=== PATIENT | male | born 1985 | race Caucasian/White ===

== ENCOUNTER → 2019-04-10 | Outpatient (CLI) | payer BC ==
--- NOTE | 2019-04-10 14:50 | Diagnostic Imaging Report ---
EXAM: CT right foot WITHOUT contrast INDICATION: Dislocation. Injury. Lisfranc injury. Foot pain COMPARISON: None TECHNIQUE: Right foot was scanned utilizing a multidetector helical scanner without administration of IV contrast. Absence of intravenous contrast decreases sensitivity for detection of lymphadenopathy and vascular pathology. Coronal and sagittal reformations were obtained. Routine protocol was performed. IV CONTRAST: None COMPLICATIONS: None RADIATION DOSE: Total DLP: 114 mGy*cm Estimated effective dose: (DLP x 0.014 x size factor) mSv CTDIvol has been reviewed. It is below the limits set by the Radiation Protocol Committee (RPC). Dose modulation, iterative reconstruction, and/or weight based adjustment of the mA/kV was utilized to reduce the radiation dose to as low as reasonably achievable. FINDINGS: Comminuted intra-articular fracture involving the proximal second metatarsal and adjacent cuneiform bone. The proximal second metatarsal is subluxed laterally by approximately 3 mm. Several bone fragments are seen at the Lisfranc joint. Additionally, there is a comminuted intra-articular fracture involving the lateral cuneiform bone. The remainder the visualized osseous structures appear to be intact. Mild scattered degenerative changes are seen. No osseous erosion. Soft tissue swelling centered at the Lisfranc joint. No radiopaque foreign body. No talar dome osteochondral lesion is seen. The subtalar joints are intact. Impression: Lisfranc joint fracture as described above. Signed by: Dr. Casa Ansari M.D. on 04/10/2019 2:48 PM
== END ==
LOC: CT 11:01
PROVIDERS: ATTEND Podiatrist Foot & Ankle Surgery
DX: S93.324A Dislocation of tarsometatarsal joint of right foot, initial encounter (principal)

== ENCOUNTER → 2019-04-18 | Day surgery (SDC) | payer BC ==
[~2019-04-18] MED LIST: BUPIVACAINE HCL 0.5% INJ 30 ML VIAL INJ ONE; BUSPIRONE HCL15 MG PO; CEFAZOLIN SOD 1 GM/NS 50ML 50 ML IV ONE; DEXAMETHASONE SOD PHOS INJ 4 MG/ML VIAL ONE; FENTANYL CITRATE/PF 100MCG/2 ML INJ ONE; KETOROLAC TROMETHAMINE 30 MG/ML VIAL ONE; LIDOCAINE HCL 2% LOCAL INJ 5 ML SDV VIAL INJ ONE; MIDAZOLAM HCL 2 MG/2 ML VIAL ONE; ONDANSETRON HCL INJ 2MG/ML 2ML 2 MG/ML VIAL ONE; PAXIL30 MG PO; PROPOFOL IV EMULSION 10 MG/ML 20 ML VIAL ONE; SEROQUEL25 MG PO; SEVOFLURANE INHAL SOLN 250 ML PEN BTL ONE; STRATTERA80 MG PO
[2019-04-18 09:40] VITALS: BP 140/94
--- NOTE | 2019-04-18 13:34 | Operative Report ---
DATE OF PROCEDURE: 04/18/2019 SURGEON: Bakari Chavez DPM PREOPERATIVE DIAGNOSIS: Right Lisfranc injury. POSTOPERATIVE DIAGNOSIS: Right Lisfranc injury. PLANNED PROCEDURES: Right open reduction and internal fixation of tarsometatarsal dislocation. SEWING MACHINE ADJUSTER: Tito Quintanilla DPM ([place]). ANESTHESIA: General with a postoperative block consisting of 15 mL of 0.5% Marcaine plain. HEMOSTASIS: Pneumatic thigh tourniquet set at 350 mmHg for a total time of 85 minutes. MATERIALS: Golden screws 4.0 cannulated by 26 mm, 40 mm, and 32 mm with a washer, one 4-hole straight plate, one 5-hole straight plate, four 2.4 mm combination locking and nonlocking screws measured between 18 and 22 mm and then another four combination locking and nonlocking screws measuring between 18-22 mm for the second plate, 2-0 Vicryl, 3-0 Vicryl, 4-0 nylon. ESTIMATED BLOOD LOSS: Less than 10 mL. PATHOLOGY: None. DESCRIPTION OF PROCEDURE: The patient was seen in the preoperative waiting room, where the correct procedure and site were identified. The patient was brought into the operating room and placed on the operating table in the supine position. General anesthesia was initiated. At this time, a well-padded pneumatic tourniquet was placed about the patient's right thigh. The right foot, ankle, and leg were scrubbed, prepped, and draped in the usual aseptic manner. The right foot, ankle, and leg were exsanguinated with an Esmarch bandage and pneumatic thigh tourniquet was inflated to 350 mmHg for a total time of approximately 85 minutes. Attention was directed to the dorsal aspect of the patient's right foot, where a 6 cm linear incision was made directly over the 2nd metatarsal cuneiform joint. The incision was carried to subcutaneous tissue them from deep or underlying structures. All vital and neurovascular structures were identified, retracted medially and laterally, and all bleeders were cauterized or ligated as deemed necessary. Dissection was carried down to the level of the 2nd metatarsal cuneiform joint, where through the same incision, a linear capsulotomy was performed to allow for good visualization of the joint. The dissection was carried laterally to allow for good visualization of the 3rd metatarsal cuneiform joint. There were noted to be multiple fragmentations and dislocation to the joint with a large gap noted between the 1st and 2nd metatarsals. Utilizing 4.0 cannulated screws percutaneously, the medial cuneiform and the middle cuneiform were clamped utilizing a bone clamp and utilizing techniques of AO fixation, one 4.0 mm x 26 mm cortical bone screw was placed across the intercuneiform joint. Utilizing techniques of AO fixation, a second screw was placed through the medial cuneiform into the base of the 2nd metatarsal. Fixation site was stable, confirmed via intraoperative fluoroscopy. A third screw was placed from medial cuneiform to the base of the 2nd metatarsal with a washer intact for further reinforcement of Lisfranc's joint. Attention was directed to the 2nd metatarsal and middle cuneiform joint, where it was temporarily fixated with a K-wire and then utilizing manufacture protocol, one 5-hole Khanh straight plate was placed and four screws combination of locking and nonlocking were placed measuring between 18 and 22 mm. Fixation site was stable, confirmed via intraoperative fluoroscopy. Attention was then directed to the 3rd cuneiform, where through the same incision, a 4-hole Golden locking plate was applied across the 3rd cuneiform metatarsal joint. Utilizing four combination of locking and nonlocking screws, measured between 18 and 22 mm. Everything was confirmed via intraoperative fluoroscopy. The wound was then copiously irrigated with sterile saline. The capsule and deep tissue were reapproximated with 3-0 Vicryl, subcutaneous tissue with 4-0 Vicryl, and the skin was closed using a running interlocking stitch with 4-0 nylon. The incision site was then dressed with Adaptic, 4 x 4s, Kerlix, Ran wrap, and a postop shoe. The patient tolerated the procedure and anesthesia well. The patient was transferred to the postoperative recovery room with vital signs stable and vascular status intact. The patient was monitored there for a short period time before being sent home with the following written and oral instructions: 1. Keep the dressing clean, dry, and intact. 2. The patient is to remain nonweightbearing in a posterior splint to avoid any ambulation until being seen in the office. 3. The patient is given the office number and instructed to contact us if any problems should arise. LENO Ibarra/BRNETON /[id number]
== END | disposition home or self-care (01) ==
LOC: OR 05:31
PROVIDERS: ATTEND Podiatrist Foot & Ankle Surgery
DX: S93.324A Dislocation of tarsometatarsal joint of right foot, initial encounter (principal); F31.9 Bipolar disorder, unspecified; F41.9 Anxiety disorder, unspecified
CPT/HCPCS: 28615; C1713 ×12; J0690; J1100; J1885; J2001; J2250; J2405; J2704; J3010

== ENCOUNTER → 2019-08-21 | Outpatient (CLI) | payer BC, OTHER ==
[~2019-08-21] MED LIST changes: -BUPIVACAINE HCL 0.5% INJ 30 ML VIAL INJ ONE; -CEFAZOLIN SOD 1 GM/NS 50ML 50 ML IV ONE; -DEXAMETHASONE SOD PHOS INJ 4 MG/ML VIAL ONE; -FENTANYL CITRATE/PF 100MCG/2 ML INJ ONE; -KETOROLAC TROMETHAMINE 30 MG/ML VIAL ONE; -LIDOCAINE HCL 2% LOCAL INJ 5 ML SDV VIAL INJ ONE; -MIDAZOLAM HCL 2 MG/2 ML VIAL ONE; -ONDANSETRON HCL INJ 2MG/ML 2ML 2 MG/ML VIAL ONE; -PROPOFOL IV EMULSION 10 MG/ML 20 ML VIAL ONE; -SEVOFLURANE INHAL SOLN 250 ML PEN BTL ONE
== END | disposition home or self-care (01) ==
LOC: DX 10:37 → EDSTATUS 08-24 12:00
PROVIDERS: ATTEND Podiatrist Foot & Ankle Surgery
DX: T84.84XA Pain due to internal orthopedic prosthetic devices, implants and grafts, initial encounter (principal); U07.1 COVID-19; Y83.8 Other surgical procedures as the cause of abnormal reaction of the patient, or of later complication, without mention of misadventure at the time of the procedure; Z01.812 Encounter for preprocedural laboratory examination; Z11.59 Encounter for screening for other viral diseases; Z53.9 Procedure and treatment not carried out, unspecified reason
CPT/HCPCS: 87635

== ENCOUNTER → 2019-10-10 | Day surgery (SDC) | payer BC, OTHER ==
--- NOTE | 2019-10-05 12:31 | Diagnostic Imaging Report ---
X-ray chest 2 views History: Preop Comparison: None. Findings: Central airways, cardiomediastinal silhouettes, diaphragms, pleural spaces, lungs, visualized skeleton and upper abdomen unremarkable. Impression: Normal exam. Signed by: Kavon Patten MD on 10/05/2019 12:27 PM
[~2019-10-10] MED LIST changes: +BUPIVACAINE HCL 0.5% INJ 30 ML VIAL INJ ONE; +CEFAZOLIN SOD 1 GM/NS 50ML 50 ML IV ONE; +DEXAMETHASONE SOD PHOS INJ 4 MG/ML VIAL ONE; +FENTANYL CITRATE/PF 100MCG/2 ML INJ ONE; +KETOROLAC TROMETHAMINE 30 MG/ML VIAL ONE; +LIDOCAINE HCL 2% LOCAL INJ 5 ML SDV VIAL INJ ONE; +ONDANSETRON HCL INJ 2MG/ML 2ML 2 MG/ML VIAL ONE; +PROPOFOL IV EMULSION 10 MG/ML 20 ML VIAL ONE; +SEVOFLURANE INHAL SOLN 250 ML PEN BTL ONE
[2019-10-10 08:36] VITALS: BP 140/91
--- NOTE | 2019-10-10 08:37 | Operative Report ---
DATE OF PROCEDURE: 10/10/2019 SURGEON: aBkari Chavez DPM PREOPERATIVE DIAGNOSIS: Painful hardware of right foot. POSTOPERATIVE DIAGNOSIS: Painful hardware of right foot. PLANNED PROCEDURE: Removal of painful hardware. ANESTHESIA: General with a postoperative block consisting of 20 mL of 0.5% Marcaine plain mixed with 1 mL of dexamethasone phosphate. HEMOSTASIS: Pneumatic thigh tourniquet set at 350 mmHg for a total time of approximately 30 minutes. MATERIALS: 3-0 Vicryl, 4-0 Prolene. ESTIMATED BLOOD LOSS: Less than 10 mL. PATHOLOGY: None. PROCEDURE NOTE: The patient was seen in the preoperative waiting room where the correct procedure and site were identified. The patient was brought to the operating room and placed on the operating table in supine position. General anesthesia was initiated. At this time, a well-padded pneumatic tourniquet was placed about the patient's right thigh. The right foot, ankle, and leg was then scrubbed, prepped, and draped in the usual aseptic manner. The right foot, ankle, and leg was exsanguinated with an Esmarch bandage and the pneumatic thigh tourniquet was inflated to 350 mmHg for a total time of approximately 30 minutes. Attention was directed to the dorsal aspect of the patient's right foot where a previous surgical incision was noted. The incision was made directly over the previous incision and carried down to the level of subcutaneous tissue. All vital neurovascular structures were identified, retracted medially and laterally. All bleeders were cauterized or ligated as deemed necessary. Utilizing sharp and blunt dissection, dissection was carried down to the level of the 3rd metatarsal where 2 prominent screw heads are noted. The dissection was followed to the level of the screws and the plate along the 3rd metatarsal cuneiform joint. Utilizing the 2.0 hex head screwdriver, all screws were removed and passed off to the back table, 2 of them were noted to be broken with buried hardware within the bone. The plate was removed as well. Next, the dissection was carried medially to allow for good visualization of the plate on the 2nd metatarsal cuneiform joint and there was noted to be 1 prominent screw. All 4 screws were removed at this time with one of the screws being broken with retained hardware into the 2nd metatarsal. The remainder of the screws and plates were removed and passed off to the back table. The wound was then copiously irrigated with sterile saline. Capsule and deep tissue were reapproximated with 3-0 Vicryl, subcutaneous tissue with 3-0 Vicryl and the skin was closed using a running interlocking stitch of 4-0 Prolene. Attention was directed to the medial aspect of the left foot, where a prominent screw head was noted. Utilizing #15 blade, the dissection was carried down to the subcutaneous tissue them from deep or underling structures. All vital and neurovascular structures were identified, retracted medially and laterally. All bleeders were cauterized or ligated as deemed necessary. Next, the medial screw was identified with a washer in place and utilizing the 4-0 hex head screwdriver, the screw as well as the washer was removed and passed off to the back table. The remaining screws were explored, however, were noted to be buried in the bone and did not appear to be causing the patient any irritation and were left in place. These findings were confirmed via intraoperative fluoroscopy. The wound was then copiously irrigated with sterile saline. Capsule and deep tissue were reapproximated with 3-0 Vicryl, subcutaneous tissue with 3-0 Vicryl and the skin was closed using a running interlocking stitch of 4-0 Prolene. The patient tolerated the procedure and anesthesia well. The patient was transferred to postoperative recovery room with vital signs stable and vascular status intact. The patient was monitored there for a short period time before being sent home with the following written and oral instructions. 1. Keep the dressing clean, dry, and intact. 2. The patient is to remain nonweightbearing in a walking boot and crutches and to avoid any ambulation. The patient was given the office number and instructed to contact us if any problems arise. The patient has a followup visit scheduled for approximately 5 days. LENO Ibarra/BRENTON /[id number]
== END | disposition home or self-care (01) ==
LOC: OR 05:17
PROVIDERS: ATTEND Podiatrist Foot & Ankle Surgery
DX: T84.84XA Pain due to internal orthopedic prosthetic devices, implants and grafts, initial encounter (principal); F31.9 Bipolar disorder, unspecified; Y83.8 Other surgical procedures as the cause of abnormal reaction of the patient, or of later complication, without mention of misadventure at the time of the procedure; Z01.810 Encounter for preprocedural cardiovascular examination; Z01.812 Encounter for preprocedural laboratory examination; Z01.818 Encounter for other preprocedural examination; Z11.59 Encounter for screening for other viral diseases
CPT/HCPCS: 20680 ×2; 71046; 93005; J0690; J1100; J1885; J2001; J2405; J2704; J3010; U0002